=== PATIENT | female | born 1955 | race Caucasian/White ===

== ENCOUNTER 2021-06-03 08:08 | Outpatient (CLI) | payer MEDICARE | END 2021-06-03 08:09 | disposition home or self-care (01) | LOC: CSHMAMMO 08:08 | PROVIDERS: ATTEND Internal Medicine | DX: Z12.31 Encounter for screening mammogram for malignant neoplasm of breast (principal); R92.8 Other abnormal and inconclusive findings on diagnostic imaging of breast | CPT/HCPCS: 77063; 77065; 77067; G0279 ==

== ENCOUNTER 2021-06-04 12:37 | Outpatient (CLI) | payer MEDICARE | END 2021-06-04 12:38 | disposition home or self-care (01) | LOC: CSHMAMMO 12:37 | PROVIDERS: ATTEND Internal Medicine | DX: N64.89 Other specified disorders of breast (principal) ==

== ENCOUNTER 2022-09-23 08:39 | Outpatient (CLI) | payer MEDICARE ==
[2022-09-23] MEDS ORDERED: Magnevist 469MG/ML 20 ML VIAL ONE (09:21)
== END 2022-09-23 08:40 | disposition home or self-care (01) ==
LOC: CSHMRI 08:39
PROVIDERS: ATTEND Specialist
DX: R42 Dizziness and giddiness (principal)
CPT/HCPCS: 70553; 82565

== ENCOUNTER 2023-01-08 14:28 | Outpatient (CLI) | payer MEDICARE | END 2023-01-08 14:29 | disposition home or self-care (01) | LOC: CSHMRI 14:28 | PROVIDERS: ATTEND Family Medicine | DX: M48.061 Spinal stenosis, lumbar region without neurogenic claudication (principal); M47.26 Other spondylosis with radiculopathy, lumbar region | CPT/HCPCS: 72120; 72148 ==

== ENCOUNTER 2023-05-01 08:50 | Outpatient (CLI) | payer MEDICARE | END 2023-05-01 08:51 | disposition home or self-care (01) | LOC: CSHMAMMO 08:50 | PROVIDERS: ATTEND Internal Medicine | DX: Z12.31 Encounter for screening mammogram for malignant neoplasm of breast (principal); Z98.890 Other specified postprocedural states | CPT/HCPCS: 77063; 77067 ==

== ENCOUNTER 2023-08-12 10:50 | Outpatient (CLI) | payer MEDICARE | END 2023-08-12 10:51 | disposition home or self-care (01) | LOC: CSHMAMMO 10:50 | PROVIDERS: ATTEND Internal Medicine | DX: Z13.820 Encounter for screening for osteoporosis (principal); Z78.0 Asymptomatic menopausal state; M85.851 Other specified disorders of bone density and structure, right thigh; M85.852 Other specified disorders of bone density and structure, left thigh | CPT/HCPCS: 77080 ==

== ENCOUNTER 2023-10-21 11:18 | Outpatient (CLI) | payer MEDICARE | END 2023-10-21 11:19 | disposition home or self-care (01) | LOC: CSHRAD 11:18 | PROVIDERS: ATTEND Surgery | DX: M25.552 Pain in left hip (principal); W18.30XA Fall on same level, unspecified, initial encounter; M77.9 Enthesopathy, unspecified; M16.12 Unilateral primary osteoarthritis, left hip; M46.1 Sacroiliitis, not elsewhere classified; M19.09 Primary osteoarthritis, other specified site; M47.817 Spondylosis without myelopathy or radiculopathy, lumbosacral region; M17.12 Unilateral primary osteoarthritis, left knee ==

== ENCOUNTER 2024-05-02 11:51 | Outpatient (CLI) | payer MEDICARE, OTHER | END 2024-05-02 11:52 | disposition home or self-care (01) | LOC: CSHMAMMO 11:51 | PROVIDERS: ATTEND Internal Medicine | DX: Z12.31 Encounter for screening mammogram for malignant neoplasm of breast (principal); Z98.890 Other specified postprocedural states | CPT/HCPCS: 77063; 77067 ==

== ENCOUNTER 2025-05-03 14:02 | Outpatient (CLI) | payer MEDICARE, OTHER | END 2025-05-03 14:03 | disposition home or self-care (01) | LOC: CSHMAMMO 14:02 | PROVIDERS: ATTEND Internal Medicine | DX: Z12.31 Encounter for screening mammogram for malignant neoplasm of breast (principal); Z98.890 Other specified postprocedural states | CPT/HCPCS: 77063; 77067 ==